=== PATIENT | female | born 1985 | race Two or more races ===

== ENCOUNTER 2024-07-17 21:19 | Emergency (ER) | payer OTHER ==
[2024-07-17 21:30] VITALS: BP 109/62; PULSE 75; RESP 19; TEMP 98.1; BMI 25.6
[2024-07-17 22:15] LABS: BASO % 0.9 % (0-2.0); EOS % 2.1 % (0-4.5); HEMATOCRIT 37.8 % (32.4-45.2); HEMOGLOBIN 12.7 GM/dL (10.7-15.3); LYMPH % 38.4 % (8-40); MCH 30.6 pg (25.7-33.7); MCHC 33.6 g/dl (32.0-36.0); MEAN PLT VOLUME 8.8 fl (7.5-11.1); MONO % 6.9 % (3.8-10.2); NEUT % 51.7 % (42.8-82.8); PLATELET COUNT 298 10^3/uL (134-434); RBC 4.15 M/mm3 (3.60-5.2); RDW 13.4 % (11.6-15.6); WHITE BLOOD COUNT 10.1 K/mm3 (4.0-10.0)
== END 2024-07-17 23:46 | disposition home or self-care (01) ==
LOC: JER 21:19
DX: O03.9 Complete or unspecified spontaneous abortion without complication (principal)
CPT/HCPCS: 36415; 84702; 85025; 99283-25